=== PATIENT | male | born 1950 | race Hispanic/Latino ===

== ENCOUNTER → 2018-10-26 | Outpatient (CLI) | payer OTHER ==
--- NOTE | 2018-10-26 16:30 | Diagnostic Imaging Report ---
CT of the abdomen and pelvis, without contrast, 10/26/2018. History: Left flank pain. Comparison: None available. Technique: Multidetector CT scanning of the abdomen and pelvis was performed from the level of the lung bases to the inferior pubic rami without intravenous or oral contrast. Coronal and sagittal multiplanar reformations were obtained. RADIATION DOSE: Total DLP: 296 mGy*cm Dose modulation, iterative reconstruction, and/or weight based adjustment of the mA/kV was utilized to reduce the radiation dose to as low as reasonably achievable. Discussion: Examination is limited without contrast. Lung bases: No visualized abnormalities. Abdomen: A 2 mm stone is present laterally in the left kidney. Ill-defined hypodensity is present in the central portion of the left kidney suggestive of mild left hydronephrosis. Additionally there is perinephric fat stranding. The proximal ureter appears mildly dilated, but no stone is seen along the course of the left ureter. Ill-defined hypodensity is also present in the central aspect of the right kidney without evidence of nephrolithiasis or perinephric fat stranding. The liver, gallbladder, biliary tree, spleen, pancreas, adrenal glands, and kidneys are unremarkable. The abdominal aorta is within normal limits. A moderate-sized hiatal hernia is present. There is no bowel dilatation. The appendix is visualized and is normal. There is no evidence of adenopathy or free fluid. Pelvis: The bladder, prostate, and seminal vesicles are unremarkable. There is no evidence of free fluid or adenopathy. Bones and soft tissues: Degenerative changes are present throughout the lumbar spine without evidence of lytic or sclerotic lesion. IMPRESSION: 1. A 2 mm stone is present in the left kidney, but no ureteral stone is identified. Ill-defined central hypodensity in both kidneys may be multiple secondary to multiple parapelvic cysts versus mild hydronephrosis, which is difficult to distinguish due to lack of IV contrast. Left perinephric fat stranding may be secondary to obstruction versus inflammation from pyelonephritis. Recommend further evaluation with multiphase contrast-enhanced CT. 2. Moderate size hiatal hernia. Signed by: Trace Irving on 10/26/2018 4:26 PM
== END ==
LOC: CT 12:03
PROVIDERS: ATTEND Family Medicine
DX: N20.0 Calculus of kidney (principal); K44.9 Diaphragmatic hernia without obstruction or gangrene
CPT/HCPCS: 74176